=== PATIENT | male | born 1985 | race Hispanic/Latino ===

== ENCOUNTER 2018-07-27 07:32 | Emergency (ER) | payer OTHER ==
[2018-07-27 07:39] VITALS: BMI 28.7
--- NOTE | 2018-07-27 08:45 | ED PDOC ---
Lower Extremity Pain/Injury Time Seen by Provider: 07/27/18 07:45 Chief Complaint (Nursing): Lower Extremity Problem/Injury Chief Complaint (Provider): Lower Extremity Problem/Injury History Per: Patient History/Exam Limitations: no limitations Onset/Duration Of Symptoms: Days (1) Additional Complaint(s): 32 years old male presents to ER for evaluation of right foot pain after an injury while playing football yesterday. Patient states he was flying to get the ball, landed to ground and has been unable to put pressure on the foot since then. He reports some tingling and pain on extending the foot. Patient denies any snapping or popping sound of the foot. PMD: non provided Past Medical History Reviewed: Historical Data, Nursing Documentation, Vital Signs Vital Signs: Last Vital Signs Temp 97.6 F 07/27/18 07:40 Pulse 61 07/27/18 07:40 Resp 16 07/27/18 07:40 BP 133/82 07/27/18 07:40 Pulse Ox 98 07/27/18 07:40 - Medical History PMH: No Chronic Diseases - Surgical History Surgical History: No Surg Hx - Family History Family History: States: Unknown Family Hx - Social History Current smoker - smoking cessation education provided: No Alcohol: Social Drugs: Denies - Home Medications Home Medications: Ambulatory Orders Medication Instructions Recorded No Known Home Med 07/27/18 - Allergies Allergies/Adverse Reactions: Allergies Allergy/AdvReac Type Severity Reaction Status Date / Time bacitracin Allergy REDNESS Verified 07/27/18 07:51 [From Neosporin ([id number])] neomycin Allergy REDNESS Verified 07/27/18 07:51 [From Neosporin ([id number])] polymyxin B Allergy REDNESS Verified 07/27/18 07:51 [From Neosporin ([id number])] Review of Systems ROS Statement: Except As Marked, All Systems Reviewed And Found Negative Musculoskeletal: Positive for: Foot Pain (Right) Physical Exam - Reviewed Nursing Documentation Reviewed: Yes Vital Signs Reviewed: Yes - Physical Exam Appears: Positive for: Non-toxic, No Acute Distress Head Exam: Positive for: ATRAUMATIC, NORMOCEPHALIC Extremity: Positive for: Normal ROM, Tenderness (to right calcanues. No tenderness to right metatarsals.). Negative for: Swelling (of right foot), Other (Ecchymosis of right ankle and foot) Neurologic/Psych: Positive for: Alert, Oriented (x3) - ECG O2 Sat by Pulse Oximetry: 98 (RA) Pulse Ox Interpretation: Normal Medical Decision Making Medical Decision Making: Time: 819 Initial Plan: --Right Ankle X-Ray --Right Foot X-Ray ----- Scribe Attestation: Documented by Alanna Brown, acting as a scribe for Becky Daniels MD. Provider Scribe Attestation: All medical record entries made by the Scribe were at my direction and personally dictated by me. I have reviewed the chart and agree that the record accurately reflects my personal performance of the history, physical exam, medical decision making, and the department course for this patient. I have also personally directed, reviewed, and agree with the discharge instructions and disposition. Disposition - Clinical Impression Clinical Impression: Contusion of heel - Patient ED Disposition Is Patient to be Admitted: No Doctor Will See Patient In The: Office Counseled Patient/Family Regarding: Diagnosis, Need For Followup, Rx Given - Disposition Referrals: Keith Branham MD [Staff Provider] - Disposition: Routine/Home Disposition Time: 12:00 Condition: STABLE Instructions: Contusion (DC) Forms: [employer] (Finnish) - POA Present On Arrival: Falls Or Trauma
--- NOTE | 2018-07-27 12:01 | RAD ---
Date of service: 07/27/2018 PROCEDURE: Right Foot Radiographs. HISTORY: blunt injury from landing on heel COMPARISON: None. FINDINGS: BONES: Normal. No fracture. JOINTS: Normal. SOFT TISSUES: Normal. OTHER FINDINGS: None. IMPRESSION: Normal right foot radiographs.
--- NOTE | 2018-07-27 12:02 | RAD ---
Date of service: 07/27/2018 PROCEDURE: Right Ankle Radiographs. HISTORY: blunt injury from landing on heel COMPARISON: None FINDINGS: BONES: Normal. No fracture. JOINTS: Normal. No osteoarthritis. Ankle mortise maintained. Talar dome intact SOFT TISSUES: Normal. OTHER FINDINGS: None. IMPRESSION: Normal right ankle radiographs.
[2018-07-27 12:49] VITALS: BP 122/60; PULSE 70; RESP 18; TEMP 98; O2SAT 99
--- NOTE | 2018-07-27 13:37 | CP.PCM.CON ---
History of Present Illness - History of Present Illness History of Present Illness: Consult notes for attending Santi Branham: 35 y/o F patient with no PMH Seen and evaluated in the Ed for pain and swelling in his right foot Patient is AAO X 3. Patient states that was playing football yesterday and landed strongly on his right heel. Patient states that he didn't feel the pain immediately but later on he has pain when walking on his right heel . Patient states that the pain is 1/10 off weight bearing and 8/10 on we ight bearing. Patient denies any other pedal complaint at this time. She denies any tingling, numbness or burning sensation in her feet. She denies any recent F/N/V/C or SOB. PMH: None PSH: None Allergies: Bacitracin, Neomycin, Polymyxin B Social Hx: Denies smoking, ETOH use or illicit drug use Review of Systems - Review of Systems Review of Systems: As per HPI Past Patient History - Past Social History Alcohol: Social Drugs: Denies - PSYCHIATRIC Hx Substance Use: No - SURGICAL HISTORY Hx Surgeries: No Meds Home Medications: Home Medication List Medication Instructions Recorded Confirmed Type Naproxen [Naprosyn] 500 mg PO BID PRN #20 tablet 07/27/18 Rx Allergies/Adverse Reactions: Allergies Allergy/AdvReac Type Severity Reaction Status Date / Time bacitracin Allergy REDNESS Verified 07/27/18 07:51 [From Neosporin ([id number])] neomycin Allergy REDNESS Verified 07/27/18 07:51 [From Neosporin ([id number])] polymyxin B Allergy REDNESS Verified 07/27/18 07:51 [From Neosporin ([id number])] Physical Exam - Constitutional Appears: Well, Non-toxic, No Acute Distress - Head Exam Head Exam: ATRAUMATIC, NORMOCEPHALIC - Extremities Exam Additional comments: LE focused exam: Vasc: DP/PT 2/4 b/l. Cap refill < 3 sec in all digits. Temp gradient warm to cool b/l from proximal to distal. minimal non pitting edema noted at the medial; side of the right heel. Neuro: Gross and protective sensations are intact Derm:No open lesions. No clinical signs of infection. MSK: Muscle power intact 5/5 in all groups b/l. Patient can perform passive and active ROM b/l. Pain on palpating the medial side of the right heel - Neurological Exam Neurological exam: Alert, Oriented x3 - Psychiatric Exam Psychiatric exam: Normal Affect, Normal Mood Results - Vital Signs Recent Vital Signs: Last Vital Signs Temp 98 F 07/27/18 12:48 Pulse 70 07/27/18 12:48 Resp 18 07/27/18 12:48 BP 122/60 07/27/18 12:48 Pulse Ox 99 07/27/18 12:48 Assessment & Plan - Assessment and Plan (Free Text) Assessment: 32 y/o M patient seen and evaluated in the ED for Pain in his right heel Plan: Patient seen and evaluated in the Ed. Plan discussed with attending Santi Branham Chart and vitals reviewed; Afebrile. X-ray right foot reviewed: no fractures X-ray right ankle reviewed; No fractures Modified Lopez compression applied to the right LE Patient educated RICE protocol Patient to Bear weight as tolerated to the right forefoot. Patient instructed to use OTC NSAID for pain and inflammation Patient expressed verbal understanding Patient will follow up in Santi Branham in his office. - Date & Time Date: 07/27/18 Time: 13:37
== END 2018-07-27 12:48 | disposition home or self-care (01) ==
LOC: H.ER 07:32
DX: S90.31XA Contusion of right foot, initial encounter (principal); Y93.61 Activity, american tackle football